=== PATIENT | male | born 1955 | race Caucasian/White ===

== ENCOUNTER 2020-12-24 11:31 | Emergency (ER) | payer MEDICARE ==
[~2020-12-24] VITALS: Ht 185.4 cm; Wt 94.5 kg
[2020-12-24] MEDS ORDERED: LIDOCAINE-MPF 1%, 5ML ONE ×2 (11:51→11:53)
[2020-12-24] MEDS ORDERED: DIPH,PERTUSS(ACELL),TET VAC/PF 0.5 ML IM-VACC ONE ×2 (11:52→12:00)
[2020-12-24] MEDS ORDERED: LIDOCAINE-MPF 1%, 5ML INFIL ONE (12:00)
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
[2020-12-24 13:07] VITALS: BP 116/83
[2020-12-24] MEDS ORDERED: NEOSPORIN OINT. PKT 1 PACKET ONE (13:19)
== END 2020-12-24 13:40 | disposition home or self-care (01) ==
LOC: ED 13:13
DX: S61.213A Laceration without foreign body of left middle finger without damage to nail, initial encounter (principal); S61.215A Laceration without foreign body of left ring finger without damage to nail, initial encounter; W26.8XXA Contact with other sharp object(s), not elsewhere classified, initial encounter; Y93.89 Activity, other specified; Y92.009 Unspecified place in unspecified non-institutional (private) residence as the place of occurrence of the external cause; Y99.8 Other external cause status
CPT/HCPCS: 12042; 90471; 90715